=== PATIENT | female | born 1995 | race Caucasian/White ===

== ENCOUNTER 2016-08-09 13:18 | Emergency (ER) | payer SELFPAY ==
[~2016-08-09] VITALS: Ht 167.6 cm; Wt 59.0 kg
[2016-08-09] MEDS ORDERED: STRATTERA40 M1 PO (13:31)
[2016-08-09] MEDS ORDERED: ZIPRASIDONE HCL40 MG PO (13:32)
[2016-08-09] MEDS ORDERED: MONTELUKAST SOD10 MG PO (13:32)
[2016-08-09] MEDS ORDERED: FLUOXETINE HCL40 MG PO (13:32)
[2016-08-09] MEDS ORDERED: ZOFRAN4 MG PO (13:42)
== END 2016-08-09 13:53 | disposition home or self-care (01) ==
LOC: ED 13:18
DX: R11.0 Nausea (principal); R03.0 Elevated blood-pressure reading, without diagnosis of hypertension; F17.200 Nicotine dependence, unspecified, uncomplicated; Z88.1 Allergy status to other antibiotic agents; Z88.8 Allergy status to other drugs, medicaments and biological substances